=== PATIENT | male | born 1965 | race Caucasian/White ===

== ENCOUNTER 2020-06-15 22:39 | Emergency (ER) | payer OTHER ==
[~2020-06-15] VITALS: Ht 175.3 cm; Wt 110.2 kg
[2020-06-15 23:18] LABS: HEMATOCRIT 42.3 % (42.0-52.0); HEMOGLOBIN 14.1 gm/dL (14.0-18.0); MCH 31.2 pg (26.0-34.0); MCHC 33.3 g/dL (28.0-37.0); MCV 93.7 fL (80.0-100.0); MPV 7.7 fl. (7.2-11.1); NUCLEATED RBCS 0 /100WBC; PLATELET COUNT* 228 thou/uL (150-400); RBC 4.52 mil/uL (4.50-6.00); RDW-CV 14.5 % (10.5-14.5); WBC 12.8 thou/uL (4.0-11.0)
[2020-06-15 23:22] LABS: CALCIUM 8.6 mg/dL (8.5-10.1); CREATININE 1.1 mg/dL (0.6-1.3); POTASSIUM 3.9 mmol/L (3.5-5.1)
[2020-06-15 23:24] LABS: PROTIME 10.3 Seconds (9.20-11.50)
[2020-06-15 23:32] LABS: ALBUMIN 3.8 g/dL (3.4-5.0); TOTAL BILIRUBIN 0.5 mg/dL (<0.1-1.0); TOTAL PROTEIN 7.8 g/dL (6.4-8.2)
[2020-06-16 00:07] LABS: ABSOLUTE BASOPHILS 0.1 thou/uL (0.0-0.2); ABSOLUTE LYMPHOCYTES 0.9 thou/uL (0.8-5.3); ABSOLUTE MONOCYTES 0.4 thou/uL (0.0-1.2); ABSOLUTE NEUTROPHILS 11.4 thou/uL (1.6-8.1); PLATELET ESTIMATE ADEQUATE
[2020-06-16 05:19] VITALS: BP 141/89
--- NOTE | 2020-06-16 12:49 | EKG ---
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 [place]: [place] : 1965 Requested By: Makayla Momin Order Number: [id number] MD: Marlo Mccurdy Measurements Intervals [place] Rate: 103 P: 65 [place]: 143 QRS: 33 QRSD: 100 T: 110 QT: 337 QTc: 441 Interpretive Statements Sinus tachycardia Repol abnrm suggests ischemia, lateral leads Borderline ST elevation, anterior leads Baseline wander in lead(s) II,III,aVF No previous ECG available for comparison Electronically Signed On 06-16-2020 12:49:25 RADIOGRAPHER ANGIOGRAM by Marlo Mccurdy [email or web address] <ELECTRONICALLY SIGNED> By: Marlo Mccurdy MD, FACC 06/16/20 1249 2244 2244 Marlo Mccurdy MD, [facility] /EPI
--- NOTE | 2020-06-17 14:56 | EKG ---
[place] [address] ELECTROCARDIOGRAM REPORT Name: VIVIANE BARROS Room: 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: : 1965 Requested By: Makayla Momin Order Number: [id number] Reading MD: Dylan Quevedo Measurements Intervals [place] Rate: 105 P: 64 CT: 148 QRS: 23 QRSD: 98 T: 97 QT: 325 QTc: 430 Interpretive Statements Sinus tachycardia Probable left atrial enlargement Abnormal R-wave progression, early transition Minimal ST depression, lateral leads Compared to ECG 06/15/2020 22:44:01 ST (T wave) deviation still present Electronically Signed On 06-17-2020 14:55:51 INSTRUCTIONAL SUPPORT SPECIALIST by Dylan Quevedo [email or web address] <ELECTRONICALLY SIGNED> By: Dylan Quevedo MD, FAC 06/17/20 1455 0044 0044 Dylan Quevedo MD, [facility] /EPI
--- NOTE | 2020-06-17 14:56 | EKG ---
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: : 1965 Requested By: Makayla Momin Order Number: [id number] Reading MD: Dylan Quevedo Measurements Intervals [place] Rate: 96 P: 62 [place]: 150 QRS: 23 QRSD: 100 T: 77 QT: 344 QTc: 435 Interpretive Statements Sinus rhythm Probable left atrial enlargement Abnormal R-wave progression, early transition Baseline wander in lead(s) II,III,aVF Compared to ECG 06/16/2020 00:44:41 Sinus tachycardia no longer present ST (T wave) deviation still present Electronically Signed On 06-17-2020 14:56:18 RHIA by Dylan Quevedo [email or web address] <ELECTRONICALLY SIGNED> By: Dylan Quevedo MD, FACC 06/17/20 1456 0140 0140 Dylan Quevedo MD, FACC /EPI
== END 2020-06-16 05:21 | disposition short-term general hospital (02) ==
LOC: M.ERS 22:39
PROVIDERS: Emergency Medicine
DX: I21.4 Non-ST elevation (NSTEMI) myocardial infarction (principal); Z20.828 Contact with and (suspected) exposure to other viral communicable diseases; M10.9 Gout, unspecified

== ENCOUNTER 2020-10-18 15:55 | Emergency (ER) | payer OTHER ==
[~2020-10-18] VITALS: Ht 175.3 cm; Wt 106.1 kg
[2020-10-18] MEDS ORDERED: ASA81BEC PO (16:10)
[2020-10-18] MEDS ORDERED: TOPROL XL50 MG PO (16:11)
[2020-10-18] MEDS ORDERED: EFFIENT10 MG PO (16:11)
[2020-10-18] MEDS ORDERED: ALLOPURINOL 10100 M3 PO (16:11)
[2020-10-18 16:22] LABS: ABSOLUTE EOSINOPHILS 0.2 thou/uL (0.0-0.7); ABSOLUTE LYMPHOCYTES 1.2 thou/uL (0.8-5.3); ABSOLUTE MONOCYTES 0.6 thou/uL (0.0-1.2); BASOPHILS 0.5 %; EOSINOPHILS 2.8 %; HEMATOCRIT 42.7 % (42.0-52.0); HEMOGLOBIN 14.4 gm/dL (14.0-18.0); LYMPHOCYTES 17.2 %; MCH 31.3 pg (26.0-34.0); MCHC 33.6 g/dL (28.0-37.0); MCV 93.1 fL (80.0-100.0); MONOCYTES 8.1 %; MPV 7.5 fl. (7.2-11.1); NUCLEATED RBCS 0 /100WBC; PLATELET COUNT* 220 thou/uL (150-400); POLYS 71.4 %; RBC 4.59 mil/uL (4.50-6.00); RDW-CV 14.4 % (10.5-14.5)
[2020-10-18 16:36] LABS: CALCIUM 8.3 mg/dL (8.5-10.1); POTASSIUM 3.7 mmol/L (3.5-5.1)
[2020-10-18 16:40] LABS: APTT 26.4 Seconds (25.0-31.3); PROTIME 10.7 Seconds (9.20-11.50)
[2020-10-18 16:50] LABS: ALBUMIN 3.8 g/dL (3.4-5.0); CK-MB MASS 1.7 ng/mL (<0.5-3.6); MAGNESIUM 2.1 mg/dL (1.8-2.4); TOTAL BILIRUBIN 0.5 mg/dL (<0.1-1.0); TOTAL PROTEIN 7.6 g/dL (6.4-8.2)
[2020-10-18 19:11] VITALS: BP 142/65
--- NOTE | 2020-10-20 09:39 | EKG ---
[place] [address] ELECTROCARDIOGRAM REPORT Name: BARROSVIVIANE Winifred Room: 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: [place] : 1965 Requested By: Rehan Chanel Order Number: [id number] MD: Dylan Quevedo Measurements Intervals [place] Rate: 96 P: 59 [place]: 143 QRS: 33 QRSD: 84 T: 33 QT: 327 QTc: 414 Interpretive Statements Sinus rhythm Probable left atrial enlargement Borderline T abnormalities, inferior leads Baseline wander in lead(s) II,III,aVR,aVL,aVF,V2,V6 Compared to ECG 06/16/2020 01:40:21 T-wave abnormality now present Electronically Signed On 10-20-2020 9:38:51 CDT by Dylan Quevedo [email or web address] <ELECTRONICALLY SIGNED> By: Dylan Quevedo MD, FACC 10/20/20 0938 1600 1600 Dylan Quevedo MD, FACC /EPI
== END 2020-10-18 19:12 | disposition home or self-care (01) ==
LOC: M.ERS 15:55
PROVIDERS: Family Medicine
DX: R07.89 Other chest pain (principal)